=== PATIENT | female | born 1995 | race Caucasian/White ===

== ENCOUNTER 2019-01-03 12:01 | Inpatient (IN) ==
[2019-01-03 12:41] LABS: Basophils # (auto) 0.07 K/uL (0-0.2); Basophils % (auto) 1.1 %; Eosinophils # (auto) 0.14 K/uL (0-0.5); Eosinophils % (auto) 2.2 %; Hematocrit (blood only) 42.7 % (37-47); Hemoglobin 15.1 g/dL (12.0-16.0); Immature Granulocytes # (auto) 0.01 K/uL (0.00-0.02); Immature Granulocytes % (auto) 0.2 %; Lymphocytes # (auto) 1.71 K/uL (1.2-3.4); Lymphocytes % (auto) 27.4 %; Mean Corpuscular Hgb Conc 35.4 g/dL (32-36); Mean Platelet Volume 11.3 fL (7.4-10.4); Monocytes % (auto) 14.4 %; Neutrophils % (auto) 54.7 %; Platelet Count 284 K/uL (130-400); Red Blood Count 4.91 M/uL (4.2-5.4); White Blood Count 6.23 K/uL (4.8-10.8)
--- NOTE | 2019-01-03 12:43 | Emergency Department Note ---
History of Present Illness General Chief complaint: Shortness of Breath/Dyspnea Stated complaint: chest pain sob Time Seen by Provider: 01/03/19 12:18 History of Present Illness This 23-year-old female presents the ER with chief complaint of intermittent shortness of breath and pain between her shoulder blades that started on Wednesday. The patient currently does not have any chest pain but does feel short of br eath. The patient denies any cold symptoms, cough or fever. The patient denies any history of asthma. She does not smoke. Her most recent travel was to [place] 2 weeks ago. She denies any bleeding or clotting disorders. She is not on any control pills. The patient denies any prior blood clots in her legs or chest. Home Medications Home Medications Medication Instructions Recorded Confirmed Type indomethacin 75 mg PO QAM 01/03/19 01/03/19 History multivitamin [Multiple Vitamins] 1 tab PO QAM 01/03/19 01/03/19 History sumatriptan succinate [Imitrex] 50 mg PO DIRECTED PRN 01/03/19 01/03/19 History Allergies Allergy/AdvReac Type Severity Reaction Status Date / Time meera nut Allergy Hives Uncoded 01/03/19 14:53 Past Med/Surg History Medical History No pertinent past medical history Surgical History No pertinent past surgical history Family History Other No pertinent family history Social History Preferred Language: Kitt[place] Feels Safe at Home: Yes Smoking Status: Never smoker Review of Systems A total of 10 systems reviewed and were otherwise negative Physical Exam Vital Signs Vital Signs - 24 hr 01/03/19 12:02 01/03/19 12:18 01/03/19 12:43 Temperature 36.4 C L Temperature Source Oral Sepsis Recent Fever Within 48 Hours No Sepsis New/Unexplained Change in Mental Status No Sepsis Action Taken by Nursing No Action Required Pulse Rate 79 Pulse Rate [Finger] Pulse Rate from SpO2 Sensor Respiratory Rate 28 H Blood Pressure 110/70 Blood Pressure [Right Arm] Blood Pressure Mean 83 Blood Pressure Mean [Right Arm] Pulse Oximetry 99 100 54 L Oxygen Delivery Method Room Air Room Air Room Air Oxygen Flow Rate 01/03/19 12:48 01/03/19 13:21 01/03/19 14:00 Temperature Temperature Source Sepsis Recent Fever Within 48 Hours Sepsis New/Unexplained Change in Mental Status Sepsis Action Taken by Nursing Pulse Rate 75 Pulse Rate [Finger] 80 65 Pulse Rate from SpO2 Sensor 68 Respiratory Rate 24 24 24 Blood Pressure Blood Pressure [Right Arm] 100/59 L 94/57 L Blood Pressure Mean Blood Pressure Mean [Right Arm] 72 69 Pulse Oximetry 100 100 100 Oxygen Delivery Method Nasal Cannula Nasal Cannula Oxygen Flow Rate 2 2 01/03/19 14:30 Temperature Temperature Source Sepsis Recent Fever Within 48 Hours Sepsis New/Unexplained Change in Mental Status Sepsis Action Taken by Nursing Pulse Rate 67 Pulse Rate [Finger] Pulse Rate from SpO2 Sensor 67 Respiratory Rate 18 Blood Pressure Blood Pressure [Right Arm] Blood Pressure Mean Blood Pressure Mean [Right Arm] Pulse Oximetry 100 Oxygen Delivery Method Oxygen Flow Rate PHYSICAL EXAM: Vital Signs were reviewed: Patient's pulse was 79, respiratory rate 28, temperature 36.4C reviewed Nurse's notes and agree. Oxygen saturation is 100 % on room air which is normal . GENERAL: 23-year-old female appears w ith heavy breathing. No chest contractions noted. MENTAL STATUS: Alert, oriented, coherent. EARS: Canals clear. TMs good light reflex, no erythema or fluid level noted. NOSE: Nasal mucosa with moderate erythema engorgement. PHARYNX: No erythema, no edema noted. No exudate noted. Airway is adequate. NECK: Supple, non-tender. No lymphadenopathy noted. LUNGS: Clear to auscultation without wheezes rales or rhonchi. CARDIAC: Regular rate and rhythm without murmur. SKIN: No rashes noted. LOWER EXTREMITIES: No cyanosis or edema noted. Calves are nontender to palpation. Negative Homans sign bilaterally. Course Administered Medications Ioversol (Optiray 320 125ml) 119 ml IV ONCE PRN PRN Reason: Interaction Checking Stop: 01/07/19 13:11 Last Admin: 01/03/19 13:13 Dose: 119 ml Documented by: [id number] Medical Decision Making Differential Diagnosis Pneumonia, bronchitis, pleurisy, PE Medical Records Attestation: I reviewed the patient's medical records. Home Medications Current Medication List: was personally reviewed by me Laboratory Data Attestation: I reviewed the patient's lab results. Result diagrams: 01/03/19 12:25 01/03/19 12:25 Lab Results 01/03/19 01/03/19 01/03/19 Range/Units 12:25 12:25 12:25 WBC 6.23 (4.8-10.8) K/uL RBC 4.91 (4.2-5.4) M/uL Hgb 15.1 (12.0-16.0) g/dL Hct 42.7 (37-47) % MCV 87.0 (80-100) fL MCH 30.8 (25-34) pg MCHC 35.4 (32-36) g/dL RDW Std Deviation 42.0 (36.4-46.3) fL RDW Coeff of Agustin 13.0 (11.5-14.5) % Plt Count 284 (130-400) K/uL MPV 11.3 H (7.4-10.4) fL Immature Gran % (Auto) 0.2 % Neut % (Auto) 54.7 % Lymph % (Auto) 27.4 % Cherry % (Auto) 14.4 % Eos % (Auto) 2.2 % Baso % (Auto) 1.1 % Immature Gran # (Auto) 0.01 (0.00-0.02) K/uL Neut # (Auto) 3.40 (1.4-6.5) K/uL Lymph # (Auto) 1.71 (1.2-3.4) K/uL Cherry # (Auto) 0.90 H (0.11-0.59) K/uL Eos # (Auto) 0.14 (0-0.5) K/uL Baso # (Auto) 0.07 (0-0.2) K/uL PT 11.9 (9.0-12.0) Seconds INR 1.2 H (0.9-1.1) APTT 29.3 (21.0-31.0) Seconds PTT Ratio 1.1 POC D-Dimer (0-450) ng/mlFEU ABG pH (7.35-7.45) ABG pCO2 (35-46) mmHg ABG pO2 (80-95) mm/Hg ABG HCO3 (19-24) mmol/L ABG O2 Saturation (90-95) % ABG Base Excess (-9-1.8) mEq/L Bennie Test (Pos) VBG pH (7.36-7.41) VBG pCO2 (38-50) mmHg VBG pO2 mmHg VBG HCO3 mmol/L VBG O2 Saturation % VBG Base Excess mEq/L Barometric Pressure mm/Hg Oxygen Given Sodium 138 (136-145) mmol/L Potassium 3.5 (3.5-5.1) mmol/L Chloride 109 H (98-107) mmol/L Carbon Dioxide 18 L (21-32) mmol/L Anion Gap 11.0 (3-11) BUN 14 (7-18) mg/dl Creatinine 0.85 (0.6-1.2) mg/dl Est Cr Clr Drug Dosing 101.8 ml/min Est GFR ( Amer) 113.5 Est GFR (Non-Af Amer) 97.9 BUN/Creatinine Ratio 16.7 (10-20) Glucose 87 (70-99) mg/dl Calcium 9.5 (8.5-10.1) mg/dl Total Bilirubin 1.3 H (0.2-1) mg/dl AST 15 (15-37) U/L ALT 19 (12-78) U/L Alkaline Phosphatase 69 (45-117) U/L CK-MB (CK-2) < 1.0 (0.5-3.6) ng/ml CK/CKMB % Calc Not Reportable Troponin I < 0.015 (0-0.045) ng/ml Total Protein 8.2 (6.4-8.2) gm/dl Albumin 4.4 (3.4-5.0) gm/dl Globulin 3.8 (2.5-4.0) gm/dl Albumin/Globulin Ratio 1.2 (0.9-2) POC Ur Test (NEG) Influenza Type A Ag Influenza Type A (PCR) (Neg) Influenza Type B Ag Influenza Type B (PCR) (Neg) 01/03/19 01/03/19 01/03/19 Range/Units 12:32 12:49 13:55 WBC (4.8-10.8) K/uL RBC (4.2-5.4) M/uL Hgb (12.0-16.0) g/dL Hct (37-47) % MCV (80-100) fL MCH (25-34) pg MCHC (32-36) g/dL RDW Std Deviation (36.4-46.3) fL RDW Coeff of Agustin (11.5-14.5) % Plt Count (130-400) K/uL MPV (7.4-10.4) fL Immature Gran % (Auto) % Neut % (Auto) % Lymph % (Auto) % Cherry % (Auto) % Eos % (Auto) % Baso % (Auto) % Immature Gran # (Auto) (0.00-0.02) K/uL Neut # (Auto) (1.4-6.5) K/uL Lymph # (Auto) (1.2-3.4) K/uL Cherry # (Auto) (0.11-0.59) K/uL Eos # (Auto) (0-0.5) K/uL Baso # (Auto) (0-0.2) K/uL PT (9.0-12.0) Seconds INR (0.9-1.1) APTT (21.0-31.0) Seconds PTT Ratio POC D-Dimer 144 (0-450) ng/mlFEU ABG pH (7.35-7.45) ABG pCO2 (35-46) mmHg ABG pO2 (80-95) mm/Hg ABG HCO3 (19-24) mmol/L ABG O2 Saturation (90-95) % ABG Base Excess (-9-1.8) mEq/L Bennie Test (Pos) VBG pH (7.36-7.41) VBG pCO2 (38-50) mmHg VBG pO2 mmHg VBG HCO3 mmol/L VBG O2 Saturation % VBG Base Excess mEq/L Barometric Pressure mm/Hg Oxygen Given Sodium (136-145) mmol/L Potassium (3.5-5.1) mmol/L Chloride (98-107) mmol/L Carbon Dioxide (21-32) mmol/L Anion Gap (3-11) BUN (7-18) mg/dl Creatinine (0.6-1.2) mg/dl Est Cr Clr Drug Dosing ml/min Est GFR ( Amer) Est GFR (Non-Af Amer) BUN/Creatinine Ratio (10-20) Glucose (70-99) mg/dl Calcium (8.5-10.1) mg/dl Total Bilirubin (0.2-1) mg/dl AST (15-37) U/L ALT (12-78) U/L Alkaline Phosphatase (45-117) U/L CK-MB (CK-2) (0.5-3.6) ng/ml CK/CKMB % Calc Troponin I (0-0.045) ng/ml Total Protein (6.4-8.2) gm/dl Albumin (3.4-5.0) gm/dl Globulin (2.5-4.0) gm/dl Albumin/Globulin Ratio (0.9-2) POC Ur Test NEG (NEG) Influenza Type A Ag Influenza Type A (PCR) Neg for Influ A (Neg) Influenza Type B Ag Influenza Type B (PCR) Neg for Influ B (Neg) 01/03/19 01/03/19 01/03/19 Range/Units 13:55 14:01 14:31 WBC (4.8-10.8) K/uL RBC (4.2-5.4) M/uL Hgb (12.0-16.0) g/dL Hct (37-47) % MCV (80-100) fL MCH (25-34) pg MCHC (32-36) g/dL RDW Std Deviation (36.4-46.3) fL RDW Coeff of Agustin (11.5-14.5) % Plt Count (130-400) K/uL MPV (7.4-10.4) fL Immature Gran % (Auto) % Neut % (Auto) % Lymph % (Auto) % Cherry % (Auto) % Eos % (Auto) % Baso % (Auto) % Immature Gran # (Auto) (0.00-0.02) K/uL Neut # (Auto) (1.4-6.5) K/uL Lymph # (Auto) (1.2-3.4) K/uL Cherry # (Auto) (0.11-0.59) K/uL Eos # (Auto) (0-0.5) K/uL Baso # (Auto) (0-0.2) K/uL PT (9.0-12.0) Seconds INR (0.9-1.1) APTT (21.0-31.0) Seconds PTT Ratio POC D-Dimer (0-450) ng/mlFEU ABG pH 7.42 (7.35-7.45) ABG pCO2 34 L (35-46) mmHg ABG pO2 144 H (80-95) mm/Hg ABG HCO3 22 (19-24) mmol/L ABG O2 Saturation 99.1 H (90-95) % ABG Base Excess -2.2 (-9-1.8) mEq/L Bennie Test Pos (Pos) VBG pH 7.44 H (7.36-7.41) VBG pCO2 32 L (38-50) mmHg VBG pO2 38 mmHg VBG HCO3 21 mmol/L VBG O2 Saturation 72.4 % VBG Base Excess -2.5 mEq/L Barometric Pressure 721.1 721.1 mm/Hg Oxygen Given 2L Sodium (136-145) mmol/L Potassium (3.5-5.1) mmol/L Chloride (98-107) mmol/L Carbon Dioxide (21-32) mmol/L Anion Gap (3-11) BUN (7-18) mg/dl Creatinine (0.6-1.2) mg/dl Est Cr Clr Drug Dosing ml/min Est GFR ( Amer) Est GFR (Non-Af Amer) BUN/Creatinine Ratio (10-20) Glucose (70-99) mg/dl Calcium (8.5-10.1) mg/dl Total Bilirubin (0.2-1) mg/dl AST (15-37) U/L ALT (12-78) U/L Alkaline Phosphatase (45-117) U/L CK-MB (CK-2) (0.5-3.6) ng/ml CK/CKMB % Calc Troponin I (0-0.045) ng/ml Total Protein (6.4-8.2) gm/dl Albumin (3.4-5.0) gm/dl Globulin (2.5-4.0) gm/dl Albumin/Globulin Ratio (0.9-2) POC Ur Test (NEG) Influenza Type A Ag Cancelled Influenza Type A (PCR) (Neg) Influenza Type B Ag Cancelled Influenza Type B (PCR) (Neg) Imaging Data Attestation: I personally reviewed and interpreted this imaging study as follows: My Impression: Chest x-ray revealed no acute process Radiologist's Impression: CT angio chest PE protocol CT DOSE: 203.31 mGy.cm HISTORY: 23 years-old Female with PE. Acute shortness of breath with occ asional chest pain TECHNIQUE: Multiple CTA images of the chest were obtained after the intravenous administration of 119 ml Optiray 320. Coronal and sagittal MIPS were obtained from the axial data set and were submitted for review. All measurements were obtained according to NASCET criteria. A dose lowering technique was utilized adhering to the principles of ALARA. COMPARISON: Radiographs of same day. FINDINGS: CTA: Heart is normal in size without pericardial effusion. Thoracic aorta is normal in course and caliber without aneurysm or dissection. There is patency about the imaged great vessels. The pulmonary arterial tree is opacified to level of the proximal subsegmental branches and demonstrates no focal filling defects to suggest pulmonary thromboembolic disease. CT CHEST: Normal thyroid. Residual thymic tissue about the anterior mediastinum. No adenopathy by CT size criteria. No pneumothorax or pleural effusion. Mild bilateral bronchial wall thickening. Bilateral mosaic attenuation with intermixed groundglass densities. Central airways appear patent. No acute process of the imaged upper abdomen. The breast parenchyma and soft tissues appear to be within normal limits. The bones appear intact. IMPRESSION: 1. No evidence of pulmonary thromboembolic disease. 2. Mild bilateral bronchial wall thickening suggests bronchitis or reactive airway disease. 3. Bilateral mosaic attenuation with areas of intermixed groundglass density are suggestive of probable air trapping with atelectasis. 4. No focal airspace consolidation. The above report was generated using voice recognition software. It may contain grammatical, syntax or spelling errors. Electronically signed by: Theo Stapleton M.D. 01/03/2019 1:24 PM Dictated: 01/03/19 1316 Transcribed: 01/03/19 1316 XR chest 2V routine CLINICAL HISTORY: Dyspnea COMPARISON STUDY: No previous studies for comparison. FINDINGS: The cardiac and mediastinal contours are normal. There is no evidence of focal pulmonary consolidation. There is no evidence of failure. No pleural effusions are visualized.[ Slight prominence of the basilar markings is felt to be secondary to overlying breast tissue attenuation IMPRESSION: No active disease in the chest. Electronically signed by: Markus Aguilar M.D. 01/03/2019 1:00 PM Dictated: 01/03/19 1300 Transcribed: 01/03/19 1300 ECG Data Findings: + complete heart block Blood Pressure Blood Pressure Findings: Normal blood pressure MDM Narrative The patient was evaluated. She was placed on a cardiac catheterization technologist and continuous pulse ox. IV access was obtained. CBC and differential, renal profile, LFTs, coags, troponin, CK-MB and [id number] d-dimer were ordered. Chest x-ray was ordered interpreted by the radiologist and myself as above. EKG was ordered interpreted as above without any acute findings. Patient's [id number] d- dimer was 144 but the patient continues to breathe deeply. She also dropped down to 54 O2 sat when she was sleeping. She immediately was placed on 2 L oxygen via nasal cannula and was awakened by the nurse and her O2 sat came back to normal. I will go ahead and CT her chest for PE. X-ray of the chest revealed evidence of either bronchitis, reactive airway disease with some air trapping noted. A CT of the chest revealed no evidence of PE. The patient was independently evaluated by Dr. Tavares who agree with treatment plan. ABG and influenza swab was ordered. ABG was unremarkable. Influenza was negative for influenza A and influenza B. Since we did not find an etiology for her hypoxia she will be admitted for further evaluation. Hospitalist was consulted. Impression & Plan Hypoxia Discharge Plan Visit Data Chief Complaint: Shortness of Breath/Dyspnea Stated Complaint: chest pain sob ED Provider: Jesse Tavares ED Midlevel Provider: Emily Valdez Discharge Problem: Hypoxia Patient Disposition: Being Evaluated by Hospitalist Condition: Good Forms Stand Alone Forms: My [facility], Important Visit Information Prescriptions Prescriptions: No Action multivitamin [Multiple Vitamins] Tablet 1 tab PO QAM RF: 0 sumatriptan succinate [Imitrex] 50 mg Tablet 50 mg PO DIRECTED PRN (Reason: Migraine Headache) RF: 0 indomethacin 75 mg Capsule, Extended Release 75 mg PO QAM RF: 0 Referrals Referrals: PCP,NO [Primary Care Provider] -
[2019-01-03 12:54] LABS: INR 1.2 (0.9-1.1); Partial Thromboplastin Ratio 1.1; Partial Thromboplastin Time 29.3 Seconds (21.0-31.0); Prothrombin Time 11.9 Seconds (9.0-12.0)
[2019-01-03 13:01] LABS: Alanine Aminotransferase 19 U/L (12-78); Albumin Level 4.4 gm/dl (3.4-5.0); Aspartate Aminotransferase 15 U/L (15-37); BUN Creatinine Ratio 16.7 (10-20); Blood Urea Nitrogen 14 mg/dl (7-18); Calcium 9.5 mg/dl (8.5-10.1); Carbon Dioxide 18 mmol/L (21-32); Chloride 109 mmol/L (98-107); Creatinine Clr Calc Pharmacy 101.8 ml/min; Est GFR (African American) 113.5; Est GFR (Non-African American) 97.9; Glucose 87 mg/dl (70-99); Potassium 3.5 mmol/L (3.5-5.1); Sodium 138 mmol/L (136-145)
--- NOTE | 2019-01-03 13:02 | XRay Report ---
XR chest 2V routine CLINICAL HISTORY: Dyspnea COMPARISON STUDY: No previous studies for comparison. FINDINGS: The cardiac and mediastinal contours are normal. There is no evidence of focal pulmonary co nsolidation. There is no evidence of failure. No pleural effusions are visualized.[ Slight prominence of the basilar markings is felt to be secondary to overlying breast tissue attenuation IMPRESSION: No active disease in the chest. Electronically signed by: Markus Aguilar M.D. 01/03/2019 1:00 PM
[2019-01-03 13:07] LABS: Albumin Globulin Ratio 1.2 (0.9-2); Alkaline Phosphatase 69 U/L (45-117); Bilirubin,Total 1.3 mg/dl (0.2-1); Creatine Kinase MB < 1.0 ng/ml (0.5-3.6); Globulin 3.8 gm/dl (2.5-4.0); Total Protein 8.2 gm/dl (6.4-8.2); Troponin I < 0.015 ng/ml (0-0.045)
[2019-01-03] MEDS ORDERED: OPTIRAY 320 125ml IV PRN (13:12)
--- NOTE | 2019-01-03 13:26 | CT Scan Report ---
CT angio chest PE protocol CT DOSE: 203.31 mGy.cm HISTORY: 23 years-old Female with PE. Acute shortness of breath with occasional chest pain TECHNIQUE: Multiple CTA images of the chest were obtained after the intravenous administration of 119 ml Optiray 320. Coronal and sagittal MIPS were obtained from the axial data set and were submitted for review. All measurements were obtained according to NASCET criteria. A dose lowering technique w as utilized adhering to the principles of ALARA. COMPARISON: Radiographs of same day. FINDINGS: CTA: Heart is normal in size without pericardial effusion. Thoracic aorta is normal in course and caliber without aneurysm or dissection. There is patency about the imaged great vessels. The pulmonary arteri al tree is opacified to level of the proximal subsegmental branches and demonstrates no focal filling defects to suggest pulmonary thromboembolic disease. CT CHEST: Normal thyroid. Residual thymic tissue about the anterior mediastinum. No adenopathy by CT size crite melva. No pneumothorax or pleural effusion. Mild bilateral bronchial wall thickening. Bilateral mosaic attenuation with intermixed groundglass densities. Central airways appear patent. No acute process of the imaged upper abdomen. The breast parenchyma and soft tissues appear to be wit hin normal limits. The bones appear intact. IMPRESSION: 1. No evidence of pulmonary thromboembolic disease. 2. Mild bilateral bronchial wall thickening suggests bronchitis or reactive airway disease. 3. Bilateral mosaic attenuation with areas of intermixed groundglass density are suggestive of probab le air trapping with atelectasis. 4. No focal airspace consolidation. The above report was generated using voice recognition software. It may contain grammatical, syntax o r spelling errors. Electronically signed by: Theo Stapleton M.D. 01/03/2019 1:24 PM
[2019-01-03 14:25] LABS: Base Excess VBG -2.5 mEq/L; Oxygen Saturation VBG 72.4 %; pH VBG 7.44 (7.36-7.41)
[2019-01-03 14:41] LABS: HCO3 ABG 22 mmol/L (19-24); Oxygen Saturation ABG 99.1 % (90-95); PCO2 ABG 34 mmHg (35-46); PO2 ABG 144 mm/Hg (80-95); pH ABG 7.42 (7.35-7.45)
[2019-01-03 14:42] LABS: Allen Test Pos (Pos)
[2019-01-03 14:46] LABS: Influenza A virus by PCR Neg for Influ A (Neg); Influenza B virus by PCR Neg for Influ B (Neg)
--- NOTE | 2019-01-03 15:16 | History & Physical Report ---
Date of Service January 03, 2019 Assessment & Plan (1) Acute respiratory failure with hypoxia: - Admit to tele - pt discussed with insurance and family prior to admitting to ensure coverage due to financial and family status. - Continuous pulse ox - Pulm consultation with acute CHAVARRIA, negative CTPE - Checking TSH, free T3 - Check Lymes titre - Pt has been ambulating without difficulty off O2 in the ER - Duoneb therapy QID and Q2H prn, consider steriods but at this time will hold off. (2) Migraine: - Well controlled, can continue indomethicin for this and Imitrex prn (3) DVT prophylaxis: -ambulatory, no needs for chemical prophylaxis History of Present Illness Primary Care Provider: NO PCP This is a 23 yo F with PMHx of migraine headaches who presents for acute shortness of breath. Pt notes sx began Wednesday night and have worsened since. She was seen at [facility] this morning for a scheduled appointment and was referred to the ER for further workup. Pt is unsure where he sx have developed from as they have come on very quickly. 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 She denies any history of asthma, bronchitis, recent flu like symptoms, gi illnesses, vomiting, sick contacts, or changes in her daily habits. She has never experienced this before. She denies family history of similar sx. While she was hooked up on tele she had drifted to sleep in the ER, during that time she was found to be hypoxic with O2 sats in the low 60s without supplemental O2. She is on 2 L now and O2 sats in the high 90s. CTA was negative for PE but showed some possible bronchitis and atelectasis. Pt notes SOB is exacerbated with physical activity, as she was unable to do he typical exercise routine Wednesday. Normally pt is able to sprint and exercise for 45min-1 hr without difficulty. Pt notes weight loss of ~25 lbs since last May due to increased exercise and improved nutritional status. Pt reports her apple watch will let her know what her calorie deficit is. Upon further questioning she denies fixation on calorie counting, denies food restriction, and denies anorexia or bulemia. Allergies Allergy/AdvReac Type Severity Reaction Status Date / Time meera nut Allergy Hives Uncoded 01/03/19 14:53 Home Medications Home Medications Medication Instructions Recorded Confirmed Type indomethacin 75 mg PO QAM 01/03/19 01/03/19 History multivitamin [Multiple Vitamins] 1 tab PO QAM 01/03/19 01/03/19 History sumatriptan succinate [Imitrex] 50 mg PO DIRECTED PRN 01/03/19 01/03/19 History Past Med/Surg History Medical History DVT prophylaxis Acute respiratory failure with hypoxia Migraine No pertinent past medical history Surgical History No pertinent past surgical history Social History Preferred Language: Yi Current Living Situation: Alone current occupational status: student Feels Safe at Home: Yes Smoking Status: Never smoker Hx Alcohol Use: Yes (occasional) well-balanced diet: daily or most days eating out: rarely or never during the past year weight has: decreased > 10 lbs Review of Systems Constitutional: No fever, sweats or chills Eyes: No diplopia, no worsening or blurred vision ENT: normal hearing, no trouble swallowing Respiratory: As per HPI. Cardiovascular: No chest pain, tightness or palpitations Abdomen: No pain, nausea, vomiting, diarrhea or constipation Musculoskeletal: No joint pain, calf pain, swelling Neurologic: No weakness, numbness/tingling, or balance problems Psychiatric: No anxiety or depression Skin: No rash or itch Physical Exam Vital Signs (Past 24 Hours): Last Vital Signs Temp 36.4 C L 01/03/19 12:02 Pulse 67 01/03/19 14:30 Resp 18 01/03/19 14:30 BP 94/57 L 01/03/19 13:21 Pulse Ox 100 01/03/19 14:30 Physical Exam: General: awake, alert, no apparent distress Head: Normocephalic, atraumatic ENT: PERRL, EOMI, no pharyngeal exudate, mucous membranes moist Chest: Clear to auscultation, on 2 L via NC, no adventitious breath sounds Cardiac: Regular rhythm, + HR in he 60s at bedside, no murmur, no JVD, normal peripheral pulses, good capillary refill Abdominal: NABS x 4 quadrants, soft, nontender to palpation, no rebound, guarding or tenderness Extremities: Normal inspection, no peripheral edema or erythema, calfs nontender to palpation Psych: Normal mood and affect Neuro: AAO x 3, strength intact bilaterally and related 5/5, no motor deficits, speech is clear, no peripheral sensory deficits Constitutional: WD/WN, vitals as above Eyes: normal visual esparza by confrontation and + anicteric sclerae Neck: normal visual inspection and trachea midline Respiratory: normal respiratory effort, lungs clear to auscultation (occasionally gasps for air at rest) Cardiovascular: Rate/Rhythm: regular rate and regular rhythm Gastrointestinal (Abdomen): Inspection/Auscultation: abdomen not distended Percussion/Palpation: abdomen soft; abdomen nontender Musculoskeletal: Head/Neck/Chest: normocephalic and head atraumatic negative for edema, peripheral pulses intact Skin: no rashes, warm and dry Neurologic: awake; not confused Speech / Cognition: normal speech Psychiatric: A+Ox3, euthymic affect Results & Data Diagnostic Findings CT angio chest PE protocol CT DOSE: 203.31 mGy.cm HISTORY: 23 years-old Female with PE. Acute shortness of breath with occasional chest pain TECHNIQUE: Multiple CTA images of the chest were obtained after the intravenous administration of 119 ml Optiray 320. Coronal and sagittal MIPS were obtained from the axial data set and were submitted for review. All measurements were obtained according to NASCET criteria. A dose lowering technique was utilized adhering to the principles of ALARA. COMPARISON: Radiographs of same day. FINDINGS: CTA: Heart is normal in size without pericardial effusion. Thoracic aorta is normal in course and caliber without aneurysm or dissection. There is patency about the imaged great vessels. The pulmonary arterial tree is opacified to level of the proximal subsegmental branches and demonstrates no focal filling defects to suggest pulmonary thromboembolic disease. CT CHEST: Normal thyroid. Residual thymic tissue about the anterior mediastinum. No adenopathy by CT size criteria. No pneumothorax or pleural effusion. Mild bilateral bronchial wall thickening. Bilateral mosaic attenuation with intermixed groundglass densities. Central airways appear patent. No acute process of the imaged upper abdomen. The breast parenchyma and soft tissues appear to be within normal limits. The bones appear intact. IMPRESSION: 1. No evidence of pulmonary thromboembolic disease. 2. Mild bilateral bronchial wall thickening suggests bronchitis or reactive airway disease. 3. Bilateral mosaic attenuation with areas of intermixed groundglass density are suggestive of probable air trapping with atelectasis. 4. No focal airspace consolidation. XR chest 2V routine CLINICAL HISTORY: Dyspnea COMPARISON STUDY: No previous studies for comparison. FINDINGS: The cardiac and mediastinal contours are normal. There is no evidence of focal pulmonary consolidation. There is no evidence of failure. No pleural effusions are visualized.[ Slight prominence of the basilar markings is felt to be secondary to overlying breast tissue attenuation IMPRESSION: No active disease in the chest. ECG Additional Comments: 03-JAN-2019 12:10:40 [facility] Unusual P axis, possible ectopic atrial rhythm Nonspecific ST and T wave abnormality Prolonged QT Abnormal ECG No previous ECGs available 25mm/s 10mm/mV 150Hz 8.0 SP2 12SL 241 LES: 16 Referred by: Unconfirmed Vent. rate 78 BPM NE interval 156 ms QRS duration 84 ms QT/QTc 412/469 ms P-R-T axes -32 77 6 Code Status & VTE Plan Code Status Full Code Supervising Physician Co-Signing Physician Notes Pt seen and examined by me. SOB starting Wednesday. Some chest pain. No hx prior. Works out regularly and no issues prior. No FH of cardiac issues. Tolerating PO without issue. Pt states she is feeling better s/p interventions done in the ED. Agree with HPI/ROS as noted by PA See above for my exam in PE section Agree with plan as outlined above Pt noted to be hypoxic on RA when she fell asleep, O2 sat 54% at that time Woken up and went back to normal Denies waking gasping for breath Lyme, TSH pending CTA neg ECHO pending Pulm c/s Flu neg
[2019-01-03] MEDS ORDERED: ONDANSETRON INJ 2 MG/ML 2 ML VIAL IV PRN (16:24)
[2019-01-03] MEDS ORDERED: ACETAMINOPHEN 325 MG TAB PO PRN (16:24)
[2019-01-03] MEDS ORDERED: SUMAtriptan succinate 50 MG TAB PO PRN (16:34)
[2019-01-03 17:30] LABS: Lyme Ab IgG w/WB Rflx Negative (Negative); Lyme Ab IgM w/WB Rflx Negative (Negative)
[2019-01-03] MEDS ORDERED: ALBUT/IPRATROP 3MG/0.5MG NEB 3 ML VIAL NEB SCH (20:00)
--- NOTE | 2019-01-03 23:22 | Progress Note ---
Date of Service January 03, 2019 Assessment & Plan (1) Hypoxia: Was called because patient was requesting to leave - Discussed the risk of hypoxia at home--patient lives alone. Discussed possibility of loss of consciousness and possible due to severe hypoxia. Also discussed the need for continued evaluation to understand cause of hypoxia. The patient voices understanding and says that she would still like to go home. The patient is leaving the hospital against medical advice. Physical Exam Vital Signs (Past 24 Hours): Last Vital Signs Temp 36.7 C 01/03/19 18:53 Pulse 72 01/03/19 20:57 Resp 20 01/03/19 20:57 BP 108/68 01/03/19 18:53 Pulse Ox 99 01/03/19 20:57
[2019-01-04] MEDS ORDERED: MULTIVITAMIN TAB PO SCH (09:00)
[2019-01-04] MEDS ORDERED: INDOMETHACIN EXTENDED REL 75 MG CAPCR PO SCH (09:00)
--- NOTE | 2019-01-17 10:29 | Discharge Summary ---
Date of Service January 17, 2019 Patient left AMA on 01/03/19. This summary is being completed on 01/17/19 Admission HPI Per Admitting Provider This is a 23 yo F with PMHx of migraine headaches who presents for acute shortness of breath. Pt notes sx began Wednesday night and have worsened since. She was seen at [facility] this morning for a scheduled appointment and was referred to the ER for further workup. Pt is unsure where he sx have developed from as they have come on very quickly. 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 She denies any history of asthma, bronchitis, recent flu like symptoms, gi illnesses, vomiting, sick contacts, or changes in her daily habits. She has never experienced this before. She denies family history of similar sx. While she was hooked up on tele she had drifted to sleep in the ER, during that time she was found to be hypoxic with O2 sats in the low 60s without supplemental O2. She is on 2 L now and O2 sats in the high 90s. CTA was negative for PE but showed some possible bronchitis and atelectasis. Pt notes SOB is exacerbated with physical activity, as she was unable to do he typical exercise routine Wednesday. Normally pt is able to sprint and exercise for 45min-1 hr without difficulty. Pt notes weight loss of ~25 lbs since last May due to increased exercise and improved nutritional status. Pt reports her apple watch will let her know what her calorie deficit is. Upon further questioning she denies fixation on calorie counting, denies food restriction, and denies anorexia or bulemia. Admission Exam (Per Admitting) Constitutional Physical Exam: General: awake, alert, no apparent distress Head: Normocephalic, atraumatic ENT: PERRL, EOMI, no pharyngeal exudate, mucous membranes moist Chest: Clear to auscultation, on 2 L via NC, no adventitious breath sounds Cardiac: Regular rhythm, + HR in he 60s at bedside, no murmur, no JVD, normal peripheral pulses, good capillary refill Abdominal: NABS x 4 quadrants, soft, nontender to palpation, no rebound, guarding or tenderness Extremities: Normal inspection, no peripheral edema or erythema, calfs nontender to palpation Psych: Normal mood and affect Neuro: AAO x 3, strength intact bilaterally and related 5/5, no motor deficits, speech is clear, no peripheral sensory deficits Constitutional: WD/WN, vitals as above Eyes: normal visual esparza by confrontation and + anicteric sclerae Neck: normal visual inspection and trachea midline Respiratory: normal respiratory effort, lungs clear to auscultation (occasionally gasps for air at rest) Cardiovascular: Rate/Rhythm: regular rate and regular rhythm Gastrointestinal (Abdomen): Inspection/Auscultation: abdomen not distended Percussion/Palpation: abdomen soft; abdomen nontender Musculoskeletal: Head/Neck/Chest: normocephalic and head atraumatic negative for edema, peripheral pulses intact Skin: no rashes, warm and dry Neurologic: awake; not confused Speech / Cognition: normal speech Psychiatric: A+Ox3, euthymic affect Discharge Data Consultations 01/03/19 15:04 ED Decision to Admit Stat 01/03/19 16:25 Consult Pulmonology Routine Hospital Course (1) Acute respiratory failure with hypoxia: Patient was admitted to telemetry with acute respiratory failure with hypoxia. CT was negative for pulmonary embolism. The patient symptomatically improved during her brief hospital stay and wished to leave. The risks of hypoxia were discussed with the patient at length and it was suggested that she stay the night for continued observation and workup. Patient declined hospital stay and left AMA. She was instructed to return to the hospital should she experience worsening SOB, dizziness, fatigue. She can followup with S. VS at time of discharge were stable. RR of 20 and 99% on RA (2) Migraine: Well controlled. Patient on Indomethicin and Imitrex PRN to be continued outpatient Discharge Instructions Patient left AMA. She is instructed to return to the hospital if her symptoms persist or worsen
== END 2019-01-03 23:33 | disposition left against medical advice (07) | DRG 189 ==
LOC: ED 12:01 → 2N 16:24